=== PATIENT | female | born 1990 | race Caucasian/White ===

== ENCOUNTER 2016-08-10 07:37 | Outpatient (CLI) | payer MEDICARE, BC | END 2016-08-10 07:38 | disposition home or self-care (01) | DX: N30.00 Acute cystitis without hematuria (principal) ==

== ENCOUNTER 2016-09-01 09:56 | Outpatient (CLI) | payer MEDICARE, BC | END 2016-09-01 09:57 | disposition home or self-care (01) | DX: Z00.00 Encounter for general adult medical examination without abnormal findings (principal); Z79.899 Other long term (current) drug therapy; Z13.6 Encounter for screening for cardiovascular disorders ==

== ENCOUNTER 2016-10-18 09:25 | Outpatient (CLI) | payer MEDICARE, BC | END 2016-10-18 09:26 | disposition home or self-care (01) | DX: N39.0 Urinary tract infection, site not specified (principal); R30.0 Dysuria ==

== ENCOUNTER 2017-09-02 08:55 | Outpatient (CLI) | payer MEDICARE, BC, MEDICAID ==
[2017-09-02 17:52] LABS: BASOPHILS # (AUTO) 0.1 10^3/uL (0.0-0.1); BASOPHILS % (AUTO) 1.3 %; EOSINOPHILS # (AUTO) 0.1 10^3/uL (0.0-0.7); EOSINOPHILS % (AUTO) 0.9 %; HGB - HEMOGLOBIN 12.6 g/dL (12.0-16.0); LYMPHOCYTES # (AUTO) 2.4 10^3/uL (1.5-3.5); LYMPHOCYTES % (AUTO) 36.1 %; MEAN CORPUSCULAR HEMOGLOBIN 29.9 pg (27.0-31.0); MEAN CORPUSCULAR HGB CONC 33.2 g/dL (32.0-36.0); MEAN CORPUSCULAR VOLUME 90.2 fL (81.0-99.0); MEAN PLATELET VOLUME 10.6 fL (7.9-10.8); MONOCYTES # (AUTO) 0.5 10^3/uL (0.0-1.0); MONOCYTES % (AUTO) 7.7 %; NEUTROPHILS # (AUTO) 3.6 10^3/uL (1.5-6.6); PLT - PLATELET COUNT 205 10^3/uL (130-450); RED BLOOD COUNT 4.21 10^6/uL (4.20-5.40); WHITE BLOOD COUNT 6.6 x10^3/uL (4.8-10.8)
[2017-09-02 18:04] LABS: ALBUMIN 4.6 g/dL (3.2-5.5); ALBUMIN/GLOBULIN RATIO 1.5 (1.0-2.2); ALKALINE PHOSPHATASE 41 IU/L (42-121); ALT ALANINE AMINOTRANSFERASE 14 IU/L (10-60); AST ASPARTATE AMINOTRANSFERASE 20 IU/L (10-42); BILIRUBIN,TOTAL 0.8 mg/dL (0.2-1.0); BUN - BLOOD UREA NITROGEN 12 mg/dL (6-20); CALCIUM 9.5 mg/dL (8.5-10.3); CARBON DIOXIDE - CO2 29 mmol/L (21-32); CHLORIDE 99 mmol/L (101-111); CHOL/HDL RATIO 3.4 (<4.4); CHOLESTEROL 213 mg/dL; CREATININE 0.5 mg/dL (0.4-1.0); GFR - MDRD 150 (>89); GLUCOSE 83 mg/dL (70-100); HDL CHOLESTEROL 63 mg/dL; LDL CHOLESTEROL,CALCULATED 139 mg/dL; LDL/HDL RATIO 2.2 (<4.4); SODIUM 135 mmol/L (135-145); TOTAL PROTEIN 7.7 g/dL (6.7-8.2); VLDL CHOLESTEROL 11 mg/dL
== END 2017-09-02 08:56 | disposition home or self-care (01) ==
LOC: LAB.F 08:55
PROVIDERS: ATTEND Physician Assistant Medical
DX: R62.50 Unspecified lack of expected normal physiological development in childhood (principal); E78.5 Hyperlipidemia, unspecified; Z79.899 Other long term (current) drug therapy
CPT/HCPCS: 36415; 80053; 80061; 83721; 84443; 85025

== ENCOUNTER 2017-11-16 09:31 | Outpatient (CLI) | payer MEDICARE, BC, MEDICAID ==
--- NOTE | 2017-11-16 13:15 | XRAY Report ---
THREE VIEW CERVICAL SPINE: 11/16/2017 CLINICAL INDICATION: Pain. FINDINGS: AP, lateral, odontoid views of the cervical spine were obtained. Oblique views were inadvertently obtained. The cervical spine demonstrates normal height and alignment of the vertebral bodies. The disk spaces are preserved. There is no evidence of fracture or subluxation. IMPRESSION: NORMAL CERVICAL SPINE. TD: 11/16/2017 12:53
== END 2017-11-16 09:32 | disposition home or self-care (01) ==
LOC: DI 09:31
PROVIDERS: ATTEND Physician Assistant Medical
DX: M54.6 Pain in thoracic spine (principal); M41.9 Scoliosis, unspecified
CPT/HCPCS: 72040

== ENCOUNTER 2018-10-25 08:00 | Outpatient (CLI) | payer MEDICARE, BC, MEDICAID | END 2018-10-25 23:59 | disposition home or self-care (01) | LOC: LAB.R 08:00 | PROVIDERS: ATTEND Physician Assistant Medical | DX: R30.0 Dysuria (principal) | CPT/HCPCS: 87086 ==

== ENCOUNTER 2019-07-19 15:24 | Outpatient (CLI) | payer MEDICARE, BC, MEDICAID ==
--- NOTE | 2019-07-19 22:40 | Ultrasound Report ---
Reason: LLQ PAIN Procedure Date: 07/19/2019 Accession Number: [id number] / [id number] Procedure: US - Pelvic w/Transvaginal CPT Code: Final Report FULL RESULT: EXAM: PELVIC ULTRASOUND EXAM DATE: 07/19/2019 04:39 PM. CLINICAL HISTORY: LLQ PAIN. COMPARISON: None. TECHNIQUE: Realtime transabdominal pelvic scan performed to identify the uterus and adnexa and as an overview of other pelvic structures with static image documentation. Patient refused transvaginal ultrasound. FINDINGS: Uterus: 7.4 x 3.8 x 3.9 cm, volume 57.7 cc. Retroverted position. Normal overall size and echotexture. Masses: None. Endometrium: 9 mm. No focal endometrial abnormalities. Cervix: Unremarkable. Right Ovary: 2.9 x 1.4 x 2.8 cm, volume 5.9 cc. Normal echotexture and blood flow. Left Ovary: 4.4 x 1.5 x 2.4 cm, volume 8.3 cc. Normal echotexture and blood flow. Free Fluid: Small amount, likely physiologic. Other: None. IMPRESSION: Unremarkable pelvic ultrasound. [facility]
== END 2019-07-19 15:25 | disposition home or self-care (01) ==
LOC: DI 15:24
PROVIDERS: ATTEND Family Medicine
DX: R10.32 Left lower quadrant pain (principal)
CPT/HCPCS: 76830; 76856